=== PATIENT | female | born 1995 | race Caucasian/White ===

== ENCOUNTER 2017-09-26 21:10 | Emergency (ER) | payer BC ==
[~2017-09-26] VITALS: Ht 177.8 cm; Wt 68.1 kg
[~2017-09-26 21:10] MED LIST: ATV/1 PO; FLUO20CA35 PO; NORGTAB50 PO
[2017-09-26 21:22] VITALS: TEMP 36.9; Ht 177.8 cm; Wt 68.1 kg
[2017-09-26] MEDS ORDERED: KETOROLAC TROMETHAMINE 30 MG/ML VIAL IV STA (21:42)
[2017-09-26] MEDS ORDERED: SODIUM CHLORIDE 0.9% 1000ML 1,000 ML IV STA (21:42)
[2017-09-26] MEDS ORDERED: ONDANSETRON INJ 2 MG/ML 2 ML VIAL IV STA (21:42)
[2017-09-26 22:04] LABS: MANUAL MICROSCOPIC REQUIRED? YES; PREG INTERNAL NEGATIVE QC NEG CLEAR BACKGROUND; PREG INTERNAL POSITIVE QC POS CONTROL LINE; URINE APPEARANCE TURBID (CLEAR); URINE BILIRUBIN NEG (NEG); URINE COLOR RED; URINE NITRITE POS (NEG); URINE SPECIFIC GRAVITY 1.025 (1.000-1.030); UROBILINOGEN NEG (NEG)
[2017-09-26 22:05] LABS: REVIEW REQ? NO
[2017-09-26 22:06] LABS: SULFASALICYLIC ACID POS (NEG)
[2017-09-26 22:11] LABS: URINE BACTERIA 1+ (NEG); URINE RBC >30 /hpf (0-4); URINE WBC >30 /hpf (0-5)
[2017-09-26 22:26] LABS: BASO % 0.4 %; BASO ABS # 0.05 K/uL (0-0.2); COMPLETE YES; EOS % 0.2 %; HEMATOCRIT 39.6 % (37-47); IG% 0.2 %; LYMPH % 17.7 %; LYMPH ABS # 2.13 K/uL (1.2-3.4); MEAN CELL VOLUME 95.7 fL (80-100); MEAN CORPUSCULAR HEMOGLOBIN 34.1 pg (25-34); MEAN CORPUSCULAR HGB CONC 35.6 g/dl (32-36); MEAN PLATELET VOLUME 9.5 fL (7.4-10.4); MONO % 9.2 %; NEUT % 72.3 %; PLATELET COUNT 275 K/uL (130-400); RED BLOOD COUNT 4.14 M/uL (4.2-5.4); WHITE BLOOD COUNT 12.03 K/uL (4.8-10.8)
--- NOTE | 2017-09-26 22:36 | DIAGNOSTIC IMAGING REPORT ---
CT OF THE ABDOMEN AND PELVIS WITHOUT CONTRAST, STONE PROTOCOL CLINICAL HISTORY: Flank pain. Hematuria. COMPARISON STUDY: None. TECHNIQUE: Helical axial images of the abdomen and pelvis were obtained without IV or oral contrast according to renal stone protocol. A dose lowering technique was utilized adhering to the principles of ALARA. FINDINGS: No renal, ureteral or bladder calculi are present. There is no hydronephrosis or hydroureter. Sensitivity for detection of urothelial lesions is significantly diminished on this unenhanced exam. Unenhanced images of the liver, spleen, adrenal glands and pancreas are normal. Caliber of small and large bowel is normal. The appendix is normal. There is no free fluid. There is no lymphadenopathy. 2.6 cm sclerotic lesion within the left iliac bone represents a bone island. There is no lymphadenopathy. There is no abscess. The ovaries are not enlarged. IMPRESSION: 1. No urinary calculi or hydronephrosis. 2. Decreased sensitivity for detection of urothelial lesions on this unenhanced exam. 3. No bowel obstruction. Normal appendix. Electronically signed by: Marvin Cunningham M.D. 09/26/2017 10:35 PM Dictated Date/Time: 09/26/2017 10:29 PM
[2017-09-26 22:38] LABS: BUN/CREATININE RATIO 11.9 (10-20); CALCIUM 8.7 mg/dl (8.5-10.1); CREATININE 0.75 mg/dl (0.60-1.20); POTASSIUM 3.6 mmol/L (3.5-5.1)
[2017-09-26] MEDS ORDERED: CEFTRIAXONE SOD INJ 1 GM ADDVIAL IV STA (22:43)
[2017-09-26] MEDS ORDERED: CIPR-255 PO (23:10)
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
[2017-09-26 23:32] VITALS: BP 132/87; PULSE 84; O2SAT 98
== END 2017-09-26 23:32 | disposition home or self-care (01) ==
LOC: C.EDB 21:11 → C.EDC 23:32
DX: N12 Tubulo-interstitial nephritis, not specified as acute or chronic (principal); R10.9 Unspecified abdominal pain; F17.210 Nicotine dependence, cigarettes, uncomplicated; Z83.3 Family history of diabetes mellitus; Z82.49 Family history of ischemic heart disease and other diseases of the circulatory system; Z84.1 Family history of disorders of kidney and ureter